=== PATIENT | male | born 1930 | race Caucasian/White ===

== ENCOUNTER 2016-11-14 14:29 | Outpatient (CLI) | payer OTHER | END 2016-11-14 14:30 | disposition home or self-care (01) | DX: Z79.01 Long term (current) use of anticoagulants (principal) ==

== ENCOUNTER 2016-12-14 12:33 | Outpatient (CLI) | payer OTHER | END 2016-12-14 12:34 | disposition home or self-care (01) | DX: Z79.01 Long term (current) use of anticoagulants (principal) ==

== ENCOUNTER 2017-01-14 12:54 | Outpatient (CLI) | payer OTHER | END 2017-01-14 12:55 | disposition home or self-care (01) | DX: Z79.01 Long term (current) use of anticoagulants (principal) ==

== ENCOUNTER 2017-02-19 13:55 | Outpatient (CLI) | payer OTHER | END 2017-02-19 13:56 | disposition home or self-care (01) | DX: Z79.01 Long term (current) use of anticoagulants (principal) ==

== ENCOUNTER 2017-03-19 13:39 | Outpatient (CLI) | payer OTHER | END 2017-03-19 13:40 | disposition home or self-care (01) | LOC: LAB.F 13:39 | PROVIDERS: ATTEND Internal Medicine | DX: Z79.01 Long term (current) use of anticoagulants (principal) | CPT/HCPCS: 85610 ==

== ENCOUNTER 2017-04-18 13:53 | Outpatient (CLI) | payer OTHER | END 2017-04-18 13:54 | disposition home or self-care (01) | LOC: LAB.F 13:53 | PROVIDERS: ATTEND Internal Medicine | DX: Z79.01 Long term (current) use of anticoagulants (principal) | CPT/HCPCS: 85610 ==

== ENCOUNTER 2017-05-27 15:28 | Outpatient (CLI) | payer OTHER | END 2017-05-27 15:29 | disposition home or self-care (01) | LOC: LAB.F 15:28 | PROVIDERS: ATTEND Internal Medicine | DX: Z79.01 Long term (current) use of anticoagulants (principal) | CPT/HCPCS: 85610 ==

== ENCOUNTER 2017-06-25 14:09 | Outpatient (CLI) | payer OTHER | END 2017-06-25 14:10 | disposition home or self-care (01) | LOC: LAB.F 14:09 | PROVIDERS: ATTEND Internal Medicine | DX: Z79.01 Long term (current) use of anticoagulants (principal) | CPT/HCPCS: 85610 ==

== ENCOUNTER 2017-07-24 14:31 | Outpatient (CLI) | payer OTHER | END 2017-07-24 14:32 | disposition home or self-care (01) | LOC: LAB.F 14:31 | PROVIDERS: ATTEND Internal Medicine | DX: Z79.01 Long term (current) use of anticoagulants (principal) | CPT/HCPCS: 85610 ==

== ENCOUNTER 2017-10-03 13:43 | Outpatient (CLI) | payer OTHER | END 2017-10-03 13:44 | disposition home or self-care (01) | LOC: LAB.F 13:43 | PROVIDERS: ATTEND Internal Medicine | DX: Z79.01 Long term (current) use of anticoagulants (principal) | CPT/HCPCS: 85610 ==

== ENCOUNTER 2017-10-16 11:17 | Outpatient (CLI) | payer OTHER | END 2017-10-16 11:18 | disposition EMS.NT | LOC: EMS 11:17 | PROVIDERS: ATTEND Surgery | DX: Z04.1 Encounter for examination and observation following transport accident (principal); V49.49XA Driver injured in collision with other motor vehicles in traffic accident, initial encounter; Y92.413 State road as the place of occurrence of the external cause ==

== ENCOUNTER 2017-11-14 13:22 | Outpatient (CLI) | payer OTHER | END 2017-11-14 13:23 | disposition home or self-care (01) | LOC: LAB.F 13:22 | PROVIDERS: ATTEND Internal Medicine | DX: Z79.01 Long term (current) use of anticoagulants (principal) | CPT/HCPCS: 85610 ==

== ENCOUNTER 2017-12-18 14:35 | Outpatient (CLI) | payer OTHER | END 2017-12-18 14:36 | disposition home or self-care (01) | LOC: LAB.F 14:35 | PROVIDERS: ATTEND Internal Medicine | DX: Z79.01 Long term (current) use of anticoagulants (principal) | CPT/HCPCS: 85610 ==

== ENCOUNTER 2018-01-14 14:06 | Outpatient (CLI) | payer OTHER | END 2018-01-14 14:07 | disposition home or self-care (01) | LOC: LAB.F 14:06 | PROVIDERS: ATTEND Internal Medicine | DX: Z79.01 Long term (current) use of anticoagulants (principal) | CPT/HCPCS: 85610 ==

== ENCOUNTER 2018-02-12 14:13 | Outpatient (CLI) | payer OTHER | END 2018-02-12 14:14 | disposition home or self-care (01) | LOC: LAB.F 14:13 | PROVIDERS: ATTEND Internal Medicine | DX: Z79.01 Long term (current) use of anticoagulants (principal) | CPT/HCPCS: 85610 ==

== ENCOUNTER 2018-03-21 14:40 | Outpatient (CLI) | payer OTHER | END 2018-03-21 14:41 | disposition home or self-care (01) | LOC: LAB.F 14:40 | PROVIDERS: ATTEND Internal Medicine | DX: Z79.01 Long term (current) use of anticoagulants (principal) | CPT/HCPCS: 85610 ==

== ENCOUNTER 2018-05-05 14:42 | Outpatient (CLI) | payer OTHER | END 2018-05-05 14:43 | disposition home or self-care (01) | LOC: LAB.F 14:42 | PROVIDERS: ATTEND Internal Medicine | DX: Z79.01 Long term (current) use of anticoagulants (principal) | CPT/HCPCS: 85610 ==

== ENCOUNTER 2018-06-23 14:11 | Outpatient (CLI) | payer OTHER | END 2018-06-23 14:12 | disposition home or self-care (01) | LOC: LAB.F 14:11 | PROVIDERS: ATTEND Internal Medicine | DX: Z79.01 Long term (current) use of anticoagulants (principal) | CPT/HCPCS: 85610 ==

== ENCOUNTER 2018-07-24 14:51 | Outpatient (CLI) | payer OTHER | END 2018-07-24 14:52 | disposition home or self-care (01) | LOC: LAB.F 14:51 | PROVIDERS: ATTEND Internal Medicine | DX: Z79.01 Long term (current) use of anticoagulants (principal) | CPT/HCPCS: 85610 ==

== ENCOUNTER 2018-08-05 14:01 | Outpatient (CLI) | payer OTHER | END 2018-08-05 14:02 | disposition home or self-care (01) | LOC: LAB.F 14:01 | PROVIDERS: ATTEND Internal Medicine | DX: Z79.01 Long term (current) use of anticoagulants (principal) | CPT/HCPCS: 85610 ==

== ENCOUNTER 2018-08-19 14:49 | Outpatient (CLI) | payer OTHER | END 2018-08-19 14:50 | disposition home or self-care (01) | LOC: LAB.F 14:49 | PROVIDERS: ATTEND Internal Medicine | DX: Z79.01 Long term (current) use of anticoagulants (principal) | CPT/HCPCS: 85610 ==

== ENCOUNTER 2018-09-16 09:41 | Outpatient (CLI) | payer OTHER ==
[2018-09-16 17:48] LABS: INR 2.2 (0.8-1.2); PT - PROTHROMBIN TIME 25.2 secs (9.9-12.6)
== END 2018-09-16 09:42 | disposition home or self-care (01) ==
LOC: LAB.F 09:41
PROVIDERS: ATTEND Internal Medicine
DX: Z79.01 Long term (current) use of anticoagulants (principal)
CPT/HCPCS: 36415; 85610

== ENCOUNTER 2018-10-16 14:34 | Outpatient (CLI) | payer OTHER | END 2018-10-16 14:35 | disposition home or self-care (01) | LOC: LAB.F 14:34 | PROVIDERS: ATTEND Internal Medicine | DX: Z79.01 Long term (current) use of anticoagulants (principal) | CPT/HCPCS: 85610 ==

== ENCOUNTER 2018-11-17 14:29 | Outpatient (CLI) | payer OTHER | END 2018-11-17 14:30 | disposition home or self-care (01) | LOC: LAB.F 14:29 | PROVIDERS: ATTEND Internal Medicine | DX: Z79.01 Long term (current) use of anticoagulants (principal) | CPT/HCPCS: 85610 ==

== ENCOUNTER 2018-12-24 14:44 | Outpatient (CLI) | payer OTHER | END 2018-12-24 14:45 | disposition home or self-care (01) | LOC: LAB.F 14:44 | PROVIDERS: ATTEND Internal Medicine | DX: Z79.01 Long term (current) use of anticoagulants (principal) | CPT/HCPCS: 85610 ==

== ENCOUNTER 2019-01-20 09:12 | Outpatient (CLI) | payer OTHER | END 2019-01-20 09:13 | disposition home or self-care (01) | LOC: LAB.F 09:12 | PROVIDERS: ATTEND Internal Medicine | DX: Z79.01 Long term (current) use of anticoagulants (principal) | CPT/HCPCS: 85610 ==

== ENCOUNTER 2019-02-06 08:00 | Outpatient (CLI) | payer OTHER | END 2019-02-06 23:59 | disposition home or self-care (01) | LOC: LAB.F 08:00 | PROVIDERS: ATTEND Student in an Organized Health Care Education/Training Program | DX: Z79.01 Long term (current) use of anticoagulants (principal) | CPT/HCPCS: 85610 ==

== ENCOUNTER 2019-03-13 15:00 | Outpatient (CLI) | payer OTHER | END 2019-03-13 15:01 | disposition home or self-care (01) | LOC: LAB.F 15:00 | PROVIDERS: ATTEND Student in an Organized Health Care Education/Training Program | DX: Z79.01 Long term (current) use of anticoagulants (principal) | CPT/HCPCS: 85610 ==

== ENCOUNTER 2019-04-22 15:03 | Outpatient (CLI) | payer OTHER | END 2019-04-22 15:04 | disposition home or self-care (01) | LOC: LAB.F 15:03 | PROVIDERS: ATTEND Student in an Organized Health Care Education/Training Program | DX: Z79.01 Long term (current) use of anticoagulants (principal) | CPT/HCPCS: 85610 ==